=== PATIENT | female | born 1955 | race Caucasian/White ===

== ENCOUNTER 2016-09-12 15:43 | Emergency (ER) | payer BC ==
[2016-09-12 16:00] VITALS: RESP 18; TEMP 98.4
[2016-09-12] MEDS ORDERED: TETRACAINE 0.5% OPHTH (PF) DROPS 4 ML BTL LEFT EYE STA (18:01)
[2016-09-12] MEDS ORDERED: TROPICAMIDE 1% OPHTH DROPS 2 ML BTL LEFT EYE STA (18:02)
--- NOTE | 2016-09-12 18:02 | ED ---
General Adult HPI - General Chief complaint: Eye Problems Stated complaint: Eye Problem Time Seen by Provider: 09/12/16 17:17 Source: patient, RN notes reviewed Mode of arrival: ambulatory Limitations: no limitations - History of Present Illness Initial comments: Chief complaint and history of present illness a 61-year-old female. She reports that earlier today she had a slight change in her field of vision. Patient describes it slightly clouded. She feels as edna she had a dark spot, lower field of vision on her left eye. It is not curtainlike, is not significantly obstruct her field of vision. There is no pain. She has not had a loss of field of vision. But rather just a small spot. She has had floaters in the past. Has not significantly changed her visual acuity. Denies headache denies eye pain - Related Data Home Medications Medication Instructions Recorded Confirmed Anastrozole [Arimidex] 1 mg PO DAILY 12/29/13 09/12/16 Citalopram Hydrobromide [CeleXA] 20 mg PO DAILY 12/29/13 09/12/16 Metoprolol Succinate (ER) [Toprol 25 mg PO DAILY 12/29/13 09/12/16 XL] Levothyroxine Sodium [Synthroid] 125 mcg PO DAILY 09/12/16 09/12/16 Allergies Allergy/AdvReac Type Severity Reaction Status Date / Time tetracycline [Tetracycline] Allergy Rash/Hives Verified 09/12/16 17:36 Review of Systems ROS Statement: Those systems with pertinent positive or pertinent negative responses have been documented in the HPI. Review of systems no complaint of a headache visual acuity changes other than noted above no complaints of any chest pain shortness of breath palpitations. Past medical problems significant for breast cancer 3 years ago she had a lumpectomy and followed by radiation. She's had a history of hyperlipidemia, hypertension hypothyroidism. Surgeries include breast surgery. She has had a hysterectomy. She's had bariatric surgery. The patient's family history significant for an aunt with breast cancer With Melanoma a Sister with Thyroid Cancer. Patient Has ALLERGIES to tetracycline. She quit smoking 25 years ago. Drink alcohol socially. ROS Other: All systems not noted in ROS Statement are negative. Past Medical History Past Medical History: Cancer, Hyperlipidemia, Hypertension, Thyroid Disorder Additional Past Medical History / Comment(s): Hx Lt Breast Ca. 07/07/13 History of Any Multi-Drug Resistant Organisms: None Reported Past Surgical History: Breast Surgery, Hysterectomy Additional Past Surgical History / Comment(s): Lt Breast Lumpectomy 07/07/13 followed by radiation and oral chemo Past Anesthesia/Blood Transfusion Reactions: No Reported Reaction Past Psychological History: No Psychological Hx Reported Smoking Status: Former smoker Past Alcohol Use History: Occasional Past Drug Use History: None Reported - Past Family History Son(s) Family Medical History: Cancer General Exam - General Exam Comments Initial Comments: General: The patient is awake and alert, in no distress, and does not appear acutely ill. Complained of a dark spot in the lower field of vision left eye. Vital signs show temperature 98.4 pulse 61 respiratory rate 18 pulse ox on percent room air blood pressure 127/83 Eye: Pupils are equal, round and reactive to light, extra-ocular movements are intact ; there is normal conjunctiva bilaterally. No signs of icterus. No hyphema, examined with ophthalmoscope. Ears, nose, mouth and throat: There are moist mucous membranes Neck: The neck is supple, there is no tenderness , no carotid bruit Cardiovascular: There is a regular rate and rhythm. No murmur, rub or gallop is appreciated. Respiratory: Lungs are clear to auscultation, respirations are non-labored, breath sounds are equal. No wheezes, Gastrointestinal: No complaint of any nausea vomiting diarrhea Back: No complaint of back pain Musculoskeletal: No complaint of any weakness numbness, skeletal skeletal pain or problems Neurological: Denies any neuro deficits. No gross abnormalities appreciated on exam Limitations: no limitations Course Vital Signs 09/12/16 15:58 Temperature 98.4 F Pulse Rate 61 Respiratory 18 Rate Blood Pressure 127/83 O2 Sat by Pulse 100 Oximetry Medical Decision Making - Medical Decision Making I discussed the case with the patient's stained glass artist she will see her here in emergency room. He wants her to have one drop of tetracaine and 2 drops of tropicamide. The stained glass artist reports the patient has beginnings of a small retinal tear. Ranges bring made for the patient in follow-up tomorrow morning at [facility] for evaluation and laser treatment. Disposition Clinical Impression: Retina disorder, left Disposition: HOME SELF-CARE Condition: Stable Instructions: Retinal Hemorrhage (ED) Additional Instructions: Keep nothing by mouth after midnight. Follow-up with [facility] tomorrow for evaluation and treatment of retinal tear left eye. Time of Disposition: 18:52
[2016-09-12 19:11] VITALS: BP 136/87; PULSE 59
--- NOTE | 2016-09-13 07:48 | ED ---
DATE OF SERVICE: EMERGENCY ROOM CONSULT: CHIEF COMPLAINT: Blurry vision left eye associated with floaters and shadows for the last few hours. OCULAR HISTORY: Patient is very high myopic. No eye surgeries. No laser treatments. MEDICAL HISTORY: Reviewed. EYE EXAMINATION: Vision: 20/40 both eyes. Extraocular motility: Full. Tension applanation: Not performed. Left eye dilated: Lens 1+ NS. AC: Quite. Vitreous: No hemorrhage. Retina: Shows superiorly 2 small hemorrhages with possible superficial small retinal early detachment. ASSESSMENT: 1. Left superior retinal whole. 2. Posterior vitreous detachment. 3. Myopia. 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 and follow in our office next week.
== END 2016-09-12 19:11 | disposition home or self-care (01) ==
LOC: EC 15:43
DX: H35.9 Unspecified retinal disorder (principal); E07.9 Disorder of thyroid, unspecified; Z85.3 Personal history of malignant neoplasm of breast; I10 Essential (primary) hypertension; Z88.1 Allergy status to other antibiotic agents; Z87.891 Personal history of nicotine dependence; Z79.899 Other long term (current) drug therapy
CPT/HCPCS: 99283